=== PATIENT | female | born 1990 | race Caucasian/White ===

== ENCOUNTER 2016-09-15 20:17 | Emergency (ER) | payer OTHER ==
[2016-09-15 20:24] VITALS: BP 122/75; PULSE 80; RESP 16; TEMP 98.4; O2SAT 97
--- NOTE | 2016-09-15 20:33 | EDPHY ---
H & P Time Seen by Provider: 09/15/16 20:24 HPI/ROS: CHIEF COMPLAINT: Avulsion left index finger HISTORY OF PRESENT ILLNESS: 26-year-old female with out-of-date tetanus, right- hand dominant was cutting vegetables sustained avulsion injury to the tip of her left 2nd digit distal phalanx. No paresthesia. She brought in the piece of tissue with her. This is no longer attached. Occurred shortly prior to arrival. PHYSICAL EXAM (Prior to examination, patient consented to physical exam, hands were washed and my usual and customary physical exam procedures followed) 1) GENERAL: Well-developed, well-nourished, alert and oriented. Appears to be in no acute distress. 2) HEAD: Normocephalic 3) HEENT: sclera anicteric 4) LUNGS: Breathing comfortably. 5) SKIN: left index finger distal phalanx superficial skin avulsion with slow capillary bleed. No signs of infection. 6) MUSCULOSKELETAL: flexion extension intact. 7) NEUROLOGIC: Full sensation Smoking Status: Never smoked Constitutional: Initial Vital Signs Temperature (C) 36.9 C 09/15/16 20:21 Heart Rate 80 09/15/16 20:21 Respiratory Rate 16 09/15/16 20:21 Blood Pressure 122/75 H 09/15/16 20:21 O2 Sat (%) 97 09/15/16 20:21 O2 Delivery Mode Room Air Allergies/Adverse Reactions: No Known Allergies Allergy (Unverified 09/15/16 20:23) Home Medications: Medication Instructions Recorded NK [No Known Home Meds] 09/15/16 MDM/Departure - MDM Procedures: Procedure: Wound management I explained the indications, risks and benefits . the superficial piece of tissue that was avulsed pre-hospitally was evaluated and this is not no longer viable piece of tissue and is very superficial. Verbal consent was obtained from the patient . The skin avulsion on the left 2nd digit was anesthetized using 0.5% bupivicaine without epinephrine digital nerve block. After anesthetic administered the patient was observed for a period of time and had no apparent adverse effects. The wound was cleansed by ER staff and dressed with Surgicel dressing. Patient tolerated procedure well. - Depart Disposition: Home, Routine, Self-Care Clinical Impression: Skin avulsion left index finger Condition: Good Instructions: Skin Avulsion (ED) Additional Instructions: Return to the ER if you develop redness, swelling, discharge, warmth to the wound, red streaks going up your arm , or any other symptoms that concern you. Referrals: TRISTIN SORTO,ESTRADA [Other] - 2-3 days, call for appt.
== END 2016-09-15 20:59 | disposition home or self-care (01) ==
DX: S61.201A Unspecified open wound of left index finger without damage to nail, initial encounter (principal); W26.8XXA Contact with other sharp object(s), not elsewhere classified, initial encounter; Y99.8 Other external cause status; Y93.89 Activity, other specified